=== PATIENT | male | born 1955 | race Caucasian/White ===

== ENCOUNTER 2017-04-15 07:39 | Inpatient (IN) | payer OTHER ==
[~2017-04-15] VITALS: Ht 185.4 cm; Wt 104.1 kg
[~2017-04-15 07:39] MED LIST: ABACAVIR300 MG PO; ASPIRIN325 MG PO; ATORVASTATIN CA80 M1 PO; BACTRIM DS1 TAB PO; DOXYCYCLINE MO100 MG PO; METOPROLOL SUCC50 M2 PO; NITROGLYCERIN0.4 MG SL; PLA75 PO; PREDNISONE20 MG PO; RANEXA500 M1 PO; TESSALON PERLE100 MG PO; TOPAMAX50 M1 PO; TRIUMEQ1 TAB PO; XOPENEX HF0.045 MG/1 INH; ZOL100 PO
[2017-04-15 08:19] LABS: BASOPHIL % 0.4 % (0-2); PLATELET COUNT 135 x10^3mcL (130-400); RED CELL DISTRIBUTION WIDTH 14.1 % (11.5-14.5)
[2017-04-15 08:35] LABS: CALCIUM 8.6 mg/dL (8.5-10.1); CARBON DIOXIDE 26.8 mmol/L (21-32); CHLORIDE SERUM 106 mmol/L (98-107); GFR1 > 60 mL/min; GLUCOSE SERUM 144 mg/dL (74-106); POTASSIUM SERUM 4.4 mmol/L (3.5-5.1); SODIUM SERUM 140 mmol/L (136-145)
[2017-04-15 08:39] LABS: ALBUMIN 3.7 g/dL (3.4-5.0); ALKALINE PHOSPHATASE 44 U/L (46-116); ALT/SGPT 38 U/L (16-63); AST/SGOT 17 U/L (15-37); BILIRUBIN TOTAL 0.9 mg/dL (0.20-1.00); TOTAL PROTEIN, SERUM 6.7 g/dL (6.4-8.2)
[2017-04-15] MEDS ORDERED: RANEXA1000 M2 PO (08:53)
[2017-04-15] MEDS ORDERED: ZOLOFT100 MG PO (08:54)
[2017-04-15] MEDS ORDERED: LOPRESSOR50 M1 PO (08:55)
[2017-04-15 11:11] VITALS: BP 132/81
[2017-04-15 11:24] LABS: AMPHETAMINE QUAL UR NONE DETECTED (NEG <=1000)
[2017-04-15 13:23] VITALS: BP 132/87
[2017-04-15 14:36] LABS: CHOLESTEROL/HDL RATIO 3.5
[2017-04-15 17:50] VITALS: BP 101/64
[2017-04-15 20:26] VITALS: BP 93/57
[2017-04-16 05:52] VITALS: BP 113/63
[2017-04-16 06:15] LABS: BASOPHIL % 0.7 % (0-2); RED CELL DISTRIBUTION WIDTH 13.6 % (11.5-14.5)
[2017-04-16 06:19] LABS: PLATELET COUNT 123 x10^3mcL (130-400)
[2017-04-16 06:29] LABS: CARBON DIOXIDE 29.9 mmol/L (21-32); CHLORIDE SERUM 104 mmol/L (98-107); CREATININE SERUM 1.1 mg/dL (0.7-1.3); GFR1 > 60 mL/min; GLUCOSE SERUM 141 mg/dL (74-106); POTASSIUM SERUM 4.1 mmol/L (3.5-5.1)
[2017-04-16 07:13] LABS: SODIUM SERUM 140 mmol/L (136-145)
[2017-04-16 09:57] VITALS: BP 107/65
[2017-04-16 11:21] VITALS: Ht 185.4 cm; Wt 104.1 kg
[2017-04-16 13:00] VITALS: BP 107/65
[2017-04-16 13:36] VITALS: BP 111/67
[2017-04-16 14:02] LABS: BASOPHIL % 0.4 % (0-2); PLATELET COUNT 131 x10^3mcL (130-400); RED CELL DISTRIBUTION WIDTH 13.7 % (11.5-14.5)
[2017-04-16 14:58] LABS: CALCIUM 8.6 mg/dL (8.5-10.1); CARBON DIOXIDE 24.3 mmol/L (21-32); CHLORIDE SERUM 106 mmol/L (98-107); CREATININE SERUM 0.9 mg/dL (0.7-1.3); GFR1 > 60 mL/min; GLUCOSE SERUM 144 mg/dL (74-106); POTASSIUM SERUM 3.9 mmol/L (3.5-5.1); SODIUM SERUM 142 mmol/L (136-145)
== END 2017-04-16 17:05 | disposition other institution (70) | DRG 311 ==
LOC: ED 07:39 → DU 10:13
PROVIDERS: Emergency Medicine; ADMIT Internal Medicine
DX: I24.9 Acute ischemic heart disease, unspecified (principal); E78.00 Pure hypercholesterolemia, unspecified; I10 Essential (primary) hypertension; E11.9 Type 2 diabetes mellitus without complications; Z86.73 Personal history of transient ischemic attack (TIA), and cerebral infarction without residual deficits; Z88.8 Allergy status to other drugs, medicaments and biological substances; I25.10 Atherosclerotic heart disease of native coronary artery without angina pectoris; M19.90 Unspecified osteoarthritis, unspecified site; Z21 Asymptomatic human immunodeficiency virus [HIV] infection status; Z66 Do not resuscitate
CPT/HCPCS: 82962; 83880; J2001; J2270; J2405; Q0092

== ENCOUNTER 2019-04-10 09:53 | Inpatient (IN) | payer OTHER ==
[~2019-04-10] VITALS: Ht 185.4 cm; Wt 103.4 kg
[~2019-04-10 09:53] MED LIST changes: +LOPRESSOR50 M1 PO; +RANEXA1000 M2 PO; +ZOLOFT100 MG PO
--- NOTE | 2019-04-10 10:03 | NUR ---
BIB MEDICS FROM [facility] W/ ONSET OF CHEST PAIN EARLY THIS AM WHILE IN BED THAT GRADUALLY PROGRESSED UNTIL HE WENT TO THE [facility]. PT DESCRIBES IT NON-PROVOKED, SHARP, & RADIATING TO LT ARM. 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 PT HAS EXTENSIVE OTHER HX WELL. SEE TRIAGE. PT PLACED ON FULL MONITORS. SEEN BY MD UPON ARRIVAL. 12-LEAD EKG IN PROGRESS.
[2019-04-10 10:35] LABS: BASOPHIL % 0.5 % (0-2); PLATELET COUNT 161 x10^3mcL (130-400); RED CELL DISTRIBUTION WIDTH 13.4 % (11.5-14.5)
[2019-04-10 10:41] LABS: CALCIUM 8.7 mg/dL (8.5-10.1); CARBON DIOXIDE 26.2 mmol/L (21-32); CREATININE SERUM 1.4 mg/dL (0.7-1.3); POTASSIUM SERUM 3.8 mmol/L (3.5-5.1)
[2019-04-10 10:45] LABS: ALBUMIN 3.9 g/dL (3.4-5.0); BILIRUBIN TOTAL 1.14 mg/dL (0.20-1.00); TOTAL PROTEIN, SERUM 7.4 g/dL (6.4-8.2)
--- NOTE | 2019-04-10 10:45 | NUR ---
TO X-RAY VIA W/C.
[2019-04-10] MEDS ORDERED: BAYER ASPIRIN R81 MG PO (12:12)
[2019-04-10] MEDS ORDERED: NOR10 PO (12:12)
[2019-04-10] MEDS ORDERED: LOP100 PO (12:13)
[2019-04-10] MEDS ORDERED: PROTONIX20 MG PO (12:13)
[2019-04-10] MEDS ORDERED: METFORMIN500 M1 PO (12:13)
[2019-04-10] MEDS ORDERED: LASIX40 MG PO (12:13)
[2019-04-10] MEDS ORDERED: DESCOVY 200-251 EACH PO (12:14)
[2019-04-10] MEDS ORDERED: TOPAMAX100 MG PO (12:14)
[2019-04-10] MEDS ORDERED: TIVICAY50 MG PO (12:14)
[2019-04-10] MEDS ORDERED: TYLENOL325 M1 PO (12:15)
--- NOTE | 2019-04-10 12:16 | NUR ---
MED REC COMPLETED USING MED LIST SENT FROM [facility].
--- NOTE | 2019-04-10 12:20 | NUR ---
ADMISSION ORDERS RECEIVED FROM DR. FERREIRA.
--- NOTE | 2019-04-10 12:26 | NUR ---
PT NOTIFIED OF ADMISSION. HEADACHE IS GONE. CHEST PAIN IS "STABLE."
--- NOTE | 2019-04-10 13:14 | NUR ---
REPORT CALLED TO [facility]I ON TELE.
[2019-04-10 13:27] LABS: MAGNESIUM 2.1 mg/dL (1.8-2.4)
[2019-04-10 13:30] LABS: CHOLESTEROL/HDL RATIO 5.2
[2019-04-10 13:45] VITALS: BP 146/84
--- NOTE | 2019-04-10 13:56 | NUR ---
RECEIVED PT FROM ER, PT ADMIT FOR CHEST PAIN, PT IS A/O X4, VERBAL RESPONSIVE, [place] BOTH EARS, LUNG SOUND DIM JEFF BASE, C/O SOB, PT IS ON 2L/MIN O2 VIA NC, PO2 95%, PT IS ON TELE 11, NSR, C/O MILD CHEST PAIN AT LEFT SIDE, BOWEL SOUND PRESENT ALL 4 QUADRANTS, NO DISTNEITON, NO TENDER. PEDAL PULSE PRESENT BOTH FEET, NO EDEMA, IV AT RIGHT AC, NO LEAKING, NO INFILTRATION. ALL ADLS ASSIST, ALL NEED MET, CALL LIGHT IN REACH, WILL CONTINUE TO MONITOR.
--- NOTE | 2019-04-10 14:14 | NUR ---
URINE SPECIMEN FOR UA/UDS COLLECTED AND TAKEN TO LAB. PT EATING WITH NO ACUTE DISTRESS NOTED AT THIS TIME.
[2019-04-10 14:32] LABS: microscopic required? NO
[2019-04-10 14:45] LABS: UA SPECIFIC GRAVITY 1.015 (1.005-1.035); urine erythrocyte NEGATIVE (NEGATIVE)
[2019-04-10 14:53] LABS: AMPHETAMINE QUAL UR NONE DETECTED (See below)
--- NOTE | 2019-04-10 16:27 | NUR ---
PT REPORTS CHEST PAIN 10. MORPHINE ADMINISTERED ORDERED PRN (SEE EMAR). WILL CONT TO MONITOR.
[2019-04-10 17:26] VITALS: BP 113/66
--- NOTE | 2019-04-10 17:36 | NUR ---
DUE MEDS ADMINISTERED. PT BP 113/66 (81) HR 69. PT TOLERATED WELL. PT REPORTS COMPLETE RELIEF AFTER ADMINISTRATION OF MORPHINE FOR CHEST PAIN 0/10. NO ACUTE DISTRESS NOTED AT THIS TIME.
[2019-04-10 17:38] VITALS: BP 107/65
--- NOTE | 2019-04-10 18:16 | NUR ---
PT STABLE AT THIS TIME. NO CHEST PAIN NOTED AT THIS TIME. ALL NEEDS TENDED TO THROUGHOUT SHIFT. WILL CONTINUE TO MONITOR AND ENDORSE CARE TO MEDIA/INSTRUCTIONAL DESIGNER.
--- NOTE | 2019-04-10 20:44 | NUR ---
Awake and verbally responsive. No respiratory distress noted on room air. Denies pain. Denies n/v. Ambulated to the bathroom. SAfety maintained. Will cont.to monitor. CIM guards in the room.
[2019-04-10 21:19] VITALS: BP 100/62
--- NOTE | 2019-04-10 23:50 | NUR ---
Medicated as ordered for c/o left chest area pain, morphine 2mg IV given with relief.
--- NOTE | 2019-04-11 04:34 | NUR ---
Afebrile. No significant change in condition noted. Pain controlled. Denies chest pain at this time. In no apparent distress.
[2019-04-11 06:13] LABS: BASOPHIL % 0.5 % (0-2); PLATELET COUNT 140 x10^3mcL (130-400); RED CELL DISTRIBUTION WIDTH 13.2 % (11.5-14.5)
[2019-04-11 06:15] VITALS: BP 120/63
[2019-04-11 06:27] LABS: CARBON DIOXIDE 23.7 mmol/L (21-32); CHLORIDE SERUM 109 mmol/L (98-107); GFR1 > 60 mL/min; GLUCOSE SERUM 122 mg/dL (74-106); POTASSIUM SERUM 3.8 mmol/L (3.5-5.1); SODIUM SERUM 143 mmol/L (136-145)
--- NOTE | 2019-04-11 07:41 | NUR ---
RECEIVED HAND OFF REPORT FROM NIGHT NURSE. PATIENT SITTING UP IN BED AWAKE AND ALERT WITH NO COMPLAINTS OF DISTRESS. TELE NUMBER [address] ON PATIENT RECEIVING OXYGEN 2LPM VIA NC. BED IN LOWEST POSTION CALL LIGHT WITHIN REACH. CIM GUARDS IN ROOM. WILL CONTINUE TO MONITOR.
--- NOTE | 2019-04-11 08:53 | NUR ---
ADMINSITERED MEDICATIONS PER SEP. HELD METOPROLOL AND AMLODIPINE DUE TO BLOOD PRESSURE 112/67 AND PULSE 63. PATIENT HAS NO PAIN, REQUESTING INFORMATION ABOUT WHEN HE WILL GET STRESS TEST. NO TEST ORDERED YET WILL ADDRESS THIS TO DR FERREIRA. PATIENT HAD NO OTHER QUESTIONS AT THIS TIME. CALL IGHT WITHIN REACH, WILL CONTINUE TO MONITOR
[2019-04-11 09:54] VITALS: BP 95/64
--- NOTE | 2019-04-11 10:30 | NUR ---
RECEIVED CALL FROM LAB, PATIENT MRSA CULTURE POSITIVE FOR MRSA, CALLED DR FERREIRA TO INFORM, NO ANSWER, PUT UP ISOLATION CART OUTSIDE OF ROOM. INFORMED PATIENT AND GAVE TEACHING ABOUT CONDITION AND ISOLATION NEEDS
--- NOTE | 2019-04-11 11:52 | NUR ---
DR AMES ENTERED ORDER FOR STRESS TEST WITH [facility] FOR TOMORROW AT 1300. NO COFFEE FROM NOW UNTIL THEN. PATIENT DIET CHAGED TO FULL LIQUID FOR BREAKFAST. NUCLEAR MED TECH CALLED AND CANNOT DO TEST TOMORROW AT THAT TIME. ASKED TO CHANGED TIME TO 1130AM. WILL CALLED BACK TECH AND CHANGE TIME
--- NOTE | 2019-04-11 12:37 | NUR ---
INFORMED PATIENT ABOUT SCHEDULED STRESS TEST FOR TOMORROW. INNSTRUCTED TO NOT EAT OR DRINK AFTER MIDNIGHT, AND NO COFFEE OR TEA. PATIENT UNDERSTANDING OF INSTRUCTIONS
[2019-04-11 13:04] VITALS: BP 113/68
--- NOTE | 2019-04-11 14:16 | NUR ---
CONTACTED DR FERREIRA AND INFORMED HIM OF MRSA SCREENING RESULT. RECEIVED ORDERS. PATIENT RESTING COMFORTABLY AT THIS TIME. CALL LIGHT WITHIN REACH
[2019-04-11 16:47] VITALS: BP 119/72
--- NOTE | 2019-04-11 18:20 | NUR ---
ADMINSITERED MEDICAITONS PER [facility]. PATIENT CALM AND COOPERATIVE AT THIS TIME, NO COMPLAINTS OF PAIN. REINFORCED TEACHING ABOUT NO AFTER MIDNIGHT AND NO COFFEE AND TEA FOR [facility]ISC[facility].
--- NOTE | 2019-04-11 19:35 | NUR ---
RECEIVED PT FROM AM NURSE. PT LAYING DOWN IN BED. PT AAOX4, ABLE TO MAKE NEEDS KNOWN. PT EAGLE, HEARING AIDS IN PLACE AT THIS TIME. ON TELE#11 READING SR 1ST DREGREE AVB. DENIES CP/PRESSURE, SAMPSON/DIZZINESS AT THIS TIME. PALPABLE PULSES TO ALL EXTREMETIES. TRACE EDEMA TO BLE NOTED. DIMINISHED LISSA SOUNDS TO BLB. BREATHING EVEN AND UNLABORED. NO ACATE DISTRESS NOTED. ABD SOFT AND NONDISTENDED. ACTIVE BS X4 QUAD. DENIES N/V/D. LAST BM 04/10. VOIDS FREELY ON URINAL. LEFT SIDED WEAKNESS. IV TO RAC FLUSHING WELL. SITE FREE FROM REDNESS AND SWELLING. BED AT LOWEST SETTING. MARKETING PROFESSIONAL RAILS X2 UP. CALL LIGHT WITHING REACH. WILL CONTINUE TO MONITOR.
[2019-04-11 20:21] VITALS: BP 112/71
--- NOTE | 2019-04-11 23:10 | NUR ---
PT C/O 02/07 PRESSURE LIKE CHESP PAIN. NO RADIATING OR ALLEVIATING FACTORS. MEDICATED WITH PRN MORPHINE PER SEP. PT STATES GOOD RELIEF AND RATES PAIN AT 09/10. WILL CONTINUE TO MONITOR.
--- NOTE | 2019-04-12 01:29 | NUR ---
PT LAYING DOWN IN BED WITH EYES CLOSED. BREATHING EVEN AND UNLABORED ON 2L NC. [place] TRIBE ELEVATED. NO ACUTE DISTRESS NOTED. BED AT LOWEST SETTING. SIDE RAILS X2 UP. CALL LIGHT WITHING REACH. WILL CONTINUE TO MONITOR.
[2019-04-12 05:24] VITALS: BP 110/68
--- NOTE | 2019-04-12 06:18 | NUR ---
PT SLEPT AT INTERVALS THROGHOUT THE NIGHT. BRATHING EVEN AN UNLABORED ON 2L NC. NO ACUTE DISTRESS NOTED. IV TO RAC FLUSHING WELL. NO SIGNIFICANT CHANGES DURING NIGHT. ALL NEEDS ASSESSED AND ATTENDED TO. BED AT LOWEST SETTING. SIDE RAILS X2 UP. CALL LIGHT WITHING REACH. WILL ENDORSE CARE TO AM NURSE.
--- NOTE | 2019-04-12 07:30 | NUR ---
PT IS AAOX4. RESP EVEN, SHALLOW AND UNLABORED. LUNG SOUNDS DIMINISHED BILATERALLY. O2 SAT AT 99%. PT HAS N/C ON AT 2LPM STATING IT'S COMFORTING. TELE [address] READING NSR WITH FIRST DEGREE BBB. PT DENIES C/P AT THIS TIME. ABDOMEN ROUND, NONTENDER, NONDISTENDED. BOWEL SOUNDS ACTIVE X 4 QUADS. PT DENIES N/V/D AND CONSTIPATION. SKIN CDI WITH TRACE BLE EDEMA. IV CATH TO RAC N/S LOCKED. SITE WNL, NO S/S OF INFECTION OR INFILTRATION NOTED. PT DENIES PAIN AT THIS TIME. CALL LIGHT WITHIN REACH. 2 GUARDS IN ROOM SUPERVISING PT. BED IN LOWEST POSTION.
--- NOTE | 2019-04-12 09:11 | NUR ---
METOPROLOL AND NORVASC HELD FOR PENDING STRESS TEST. PT REMAINS NPO AT THIS TIME. B/P 1.0/, (87), HR 89. PT HAS CHEST PAIN 02/07. PT REFUSES NITROGLYCERIN. NORCO 5/325MG PO GIVEN. EXTRA FLUIDS GIVEN AND ENCOURAGED. RESP EVEN AND UNLABORED. 2 GUARDS AT BEDSIDE ON ONE TO ONE SUPERVISION. CALL LIGHT WITHIN REACH.
[2019-04-12 09:22] VITALS: BP 108/76
--- NOTE | 2019-04-12 10:46 | NUR ---
PT TAKEN FOR STRESS TEST AT THIS TIME. 2 GUARDS ACCOMPANIED PT FOR SECURITY.
--- NOTE | 2019-04-12 12:19 | NUR ---
PT'S BLOOD SUGAR CHECK DUE. PT OFF UNIT FOR STRESS TEST. WILL TEST PT UPON RETURN TO UNIT.
--- NOTE | 2019-04-12 12:45 | NUR ---
PT BACK FROM MELISSA SCAN. 2 GUARDS AT BESIDE PROVIDING SECURITY.
--- NOTE | 2019-04-12 14:25 | NUR ---
PT BACK FROM PROCEDURE, BLOOD SUGAR TAKEN LATE. BS 153, 3 UNITS GIVEN. PT IS EATING SANDWICH AT THIS TIME. RESP EVEN AND UNLABORED. NO DISTRESS NOTED. CALL LIGHT WITHIN REACH. 2 GUARDS AT BEDSIDE.
--- NOTE | 2019-04-12 14:34 | NUR ---
HIBICLENS APPLIED TO PT TOPICALLY. PT DENIES PAIN AND DISCOMFORT AT THIS TIME. RESP EVEN AND UNLABORED. NO DISTRESS NOTED. CALL LIGHT WITHIN REACH. 2 GUARDS AT BEDSIDE PROVIDING SECURITY.
--- NOTE | 2019-04-12 16:34 | NUR ---
DR. VALADEZ MADE AWARE THAT PT'S BROUGHT IN PT'S HOME MEDS AND THAT ALL HOME MEDS WERE . DR. VALADEZ STATED PT WILL BE TREATED PRN. DR. VALADEZ STATED THE CATAPRES 0.2MG Q 6 HOURS PRN ORDER MAY HAVE THE PARAMETER GIVEN TO IT OF: MAY GIVE WHEN SBP >160. ORDER NOTED AND CARRIED OUT. PT AND PT'S GIRLFRIEND TIBURCIO MADE AWARE.
--- NOTE | 2019-04-12 16:52 | NUR ---
DUE MEDS GIVEN. PT MADE AWARE THAT HIS HAS BEEN CLEARED FOR DISCHARGE. PT AGREED WITH POC. RESP EVEN AND UNLABORED. NO DISTRESS NOTED DENIES PAIN. CALL LIGHT WITHIN REACH. 2 GUARDS AT BEDSIDE.
[2019-04-12 17:28] VITALS: BP 117/75
--- NOTE | 2019-04-12 18:39 | NUR ---
DISCHARGE/TRANSFER ORDERS REVIEWED WITH PT. ALL FORMS SIGNED AND PLACED IN CHART. ALL QUESTIONS ANSWERED. PT AWAITING TRASFER AT THIS TIME. RESP EVEN AND UNLABORED. NO DISTRESS NOTED. PT DENIES PAIN. TELE [address] READING NSR WITH FIRST DEGREE BLOCK AND BBB. IV CATH TO RAC N/S LOCKED. SITE WNL. WILL ENDORSE ALL CARE TO NOC RN.
--- NOTE | 2019-04-12 19:10 | NUR ---
PT D/C BACK TO [facility].IV D/C WITH NEEDLE INTACT.MONITOR REMOVED.IN NO DISTRESS.ASSISTED BY GUARDS AND SAWMILL SUPERVISOR.
[2019-04-16 11:37] VITALS: Ht 185.4 cm; Wt 103.4 kg
== END 2019-04-12 19:12 | disposition other institution (70) | DRG 303 ==
LOC: ED 09:53 → DU 12:19
PROVIDERS: Emergency Medicine; ADMIT Internal Medicine
DX: I25.119 Atherosclerotic heart disease of native coronary artery with unspecified angina pectoris (principal); I69.354 Hemiplegia and hemiparesis following cerebral infarction affecting left non-dominant side; E11.9 Type 2 diabetes mellitus without complications; E78.5 Hyperlipidemia, unspecified; I25.2 Old myocardial infarction; Z68.29 Body mass index [BMI] 29.0-29.9, adult; Z95.1 Presence of aortocoronary bypass graft; Z79.84 Long term (current) use of oral hypoglycemic drugs; Z22.322 Carrier or suspected carrier of Methicillin resistant Staphylococcus aureus; Z88.8 Allergy status to other drugs, medicaments and biological substances; I11.0 Hypertensive heart disease with heart failure; I50.9 Heart failure, unspecified; G43.909 Migraine, unspecified, not intractable, without status migrainosus; R09.1 Pleurisy
CPT/HCPCS: 82962; 83880; A9500; G0378; J2270; J2785; Q0092

== ENCOUNTER 2019-08-31 16:16 | Inpatient (IN) | payer OTHER ==
[~2019-08-31] VITALS: Ht 185.4 cm; Wt 89.8 kg
[~2019-08-31 16:16] MED LIST changes: +BAYER ASPIRIN R81 MG PO; +DESCOVY 200-251 EACH PO; +LASIX40 MG PO; +LOP100 PO; +METFORMIN500 M1 PO; +NOR10 PO; +PROTONIX20 MG PO; +TIVICAY50 MG PO; +TOPAMAX100 MG PO; +TYLENOL325 M1 PO
[2019-08-31 16:29] VITALS: Ht 185.4 cm; Wt 89.8 kg
[2019-08-31 16:57] LABS: BASOPHIL % 0.6 % (0-2); CALCIUM 8.7 mg/dL (8.5-10.1); CARBON DIOXIDE 27.7 mmol/L (21-32); CHLORIDE SERUM 104 mmol/L (98-107); GFR1 > 60 mL/min; GLUCOSE SERUM 146 mg/dL (74-106); PLATELET COUNT 136 x10^3mcL (130-400); POTASSIUM SERUM 3.9 mmol/L (3.5-5.1); RED CELL DISTRIBUTION WIDTH 13.7 % (11.5-14.5); SODIUM SERUM 139 mmol/L (136-145)
[2019-08-31 17:04] LABS: ALBUMIN 3.6 g/dL (3.4-5.0); ALKALINE PHOSPHATASE 60 U/L (46-116); ALT/SGPT 19 U/L (16-63); AST/SGOT 11 U/L (15-37); BILIRUBIN TOTAL 0.65 mg/dL (0.20-1.00)
[2019-08-31] MEDS ORDERED: RANEXA500 M2 PO (17:37)
[2019-08-31] MEDS ORDERED: ZOLOFT50 MG PO (17:37)
[2019-08-31 19:02] VITALS: BP 112/80
[2019-08-31 21:07] VITALS: BP 115/58
[2019-08-31 21:16] LABS: MAGNESIUM 2.2 mg/dL (1.8-2.4)
[2019-08-31 21:18] LABS: CHOLESTEROL/HDL RATIO 5.2
[2019-09-01 05:27] VITALS: BP 96/47
[2019-09-01 06:37] LABS: BASOPHIL % 0.4 % (0-2); RED CELL DISTRIBUTION WIDTH 13.8 % (11.5-14.5)
[2019-09-01 07:00] LABS: PLATELET COUNT 118 x10^3mcL (130-400)
[2019-09-01 07:36] LABS: CALCIUM 8.4 mg/dL (8.5-10.1); CARBON DIOXIDE 24.7 mmol/L (21-32); CHLORIDE SERUM 108 mmol/L (98-107); CREATININE SERUM 1.1 mg/dL (0.7-1.3); GFR1 > 60 mL/min; GLUCOSE SERUM 117 mg/dL (74-106); POTASSIUM SERUM 3.6 mmol/L (3.5-5.1); SODIUM SERUM 140 mmol/L (136-145)
[2019-09-01 08:47] VITALS: BP 97/61
[2019-09-01 12:25] VITALS: BP 103/69
[2019-09-01 16:31] LABS: AMPHETAMINE QUAL UR NONE DETECTED (See below)
[2019-09-01 17:13] VITALS: BP 107/66
[2019-09-01 18:37] LABS: UA SPECIFIC GRAVITY >=1.030 (1.005-1.035); microscopic required? YES; urine erythrocyte NEGATIVE (NEGATIVE)
[2019-09-01 20:33] VITALS: BP 101/70
[2019-09-02 05:59] VITALS: BP 121/63
[2019-09-02 09:16] VITALS: BP 137/85
[2019-09-02 12:28] VITALS: BP 108/71
[2019-09-02 16:38] VITALS: BP 113/77
[2019-09-02 20:21] VITALS: BP 97/58
[2019-09-03 05:08] VITALS: BP 108/71
[2019-09-03 08:47] VITALS: BP 107/73
[2019-09-03 13:15] VITALS: BP 123/71
[2019-09-03 17:05] VITALS: BP 112/64
[2019-09-03 21:28] VITALS: BP 123/77
[2019-09-04 06:00] VITALS: BP 113/70
[2019-09-04 08:05] VITALS: BP 136/83
[2019-09-04 11:36] VITALS: BP 97/76
[2019-09-04 12:10] VITALS: BP 97/76
[2019-09-04 16:34] VITALS: BP 119/73
== END 2019-09-04 20:15 | disposition other institution (70) | DRG 303 ==
LOC: ED 16:16 → DU 17:27
PROVIDERS: Emergency Medicine; ADMIT Internal Medicine
DX: I25.110 Atherosclerotic heart disease of native coronary artery with unstable angina pectoris (principal); I45.2 Bifascicular block; I11.9 Hypertensive heart disease without heart failure; J45.909 Unspecified asthma, uncomplicated; K27.9 Peptic ulcer, site unspecified, unspecified as acute or chronic, without hemorrhage or perforation; E11.9 Type 2 diabetes mellitus without complications; E78.5 Hyperlipidemia, unspecified; I25.2 Old myocardial infarction; Z22.322 Carrier or suspected carrier of Methicillin resistant Staphylococcus aureus; Z79.82 Long term (current) use of aspirin; Z79.84 Long term (current) use of oral hypoglycemic drugs; Z95.1 Presence of aortocoronary bypass graft; Z95.5 Presence of coronary angioplasty implant and graft; Z86.73 Personal history of transient ischemic attack (TIA), and cerebral infarction without residual deficits; Z68.27 Body mass index [BMI] 27.0-27.9, adult
CPT/HCPCS: 82962; 83880; A9500; G0378; J1956; J2270; J2405; J2550; J2785; J7040; Q0092

== ENCOUNTER 2020-07-21 09:59 | Emergency (ER) | payer OTHER, SELFPAY ==
[~2020-07-21] VITALS: Ht 185.4 cm; Wt 92.5 kg
[~2020-07-21 09:59] MED LIST changes: +RANEXA500 M2 PO; +ZOLOFT50 MG PO
[2020-07-21 10:05] VITALS: Ht 185.4 cm; Wt 92.5 kg
[2020-07-21 10:53] LABS: CARBON DIOXIDE 25.5 mmol/L (21-32); CHLORIDE SERUM 105 mmol/L (98-107); GFR1 > 60 mL/min; GLUCOSE SERUM 137 mg/dL (74-106); POTASSIUM SERUM 3.9 mmol/L (3.5-5.1); SODIUM SERUM 140 mmol/L (136-145)
[2020-07-21 11:04] LABS: BASOPHIL % 0.6 % (0.2-1.5); PLATELET COUNT 173 x10^3mcL (152-348); RED CELL DISTRIBUTION WIDTH 14.2 % (12.1-16.2)
[2020-07-21 13:59] VITALS: BP 123/67
[2020-07-21 15:02] LABS: rbc morphology (normal/abnorm) NORMAL (NORMAL)
== END 2020-07-21 14:14 | disposition left against medical advice (07) ==
LOC: ED 09:59
PROVIDERS: Emergency Medicine
DX: R07.89 Other chest pain (principal); J45.909 Unspecified asthma, uncomplicated; I50.9 Heart failure, unspecified; I11.0 Hypertensive heart disease with heart failure; E11.9 Type 2 diabetes mellitus without complications; E78.5 Hyperlipidemia, unspecified; G43.909 Migraine, unspecified, not intractable, without status migrainosus; Z86.73 Personal history of transient ischemic attack (TIA), and cerebral infarction without residual deficits; Z95.1 Presence of aortocoronary bypass graft; Z88.8 Allergy status to other drugs, medicaments and biological substances
CPT/HCPCS: 83880; J1885; Q9967